=== PATIENT | female | born 1935 | race Caucasian/White ===

== ENCOUNTER 2018-04-04 11:54 | Emergency (ER) | payer OTHER ==
[2018-04-04] MEDS ORDERED: OXYCODONE/APAP 5/325 TAB PO ONE (11:58)
[2018-04-04] MEDS ORDERED: OXYMETAZOLINE 30 ML NASAL SPRAY EACHNARE ONE (11:58)
--- NOTE | 2018-04-04 12:02 | EDPHY ---
H & P Time Seen by Provider: 04/04/18 12:00 HPI/ROS: HPI: This 82-year-old female who presents with Chief Complaint: Tripping on a rocking hitting her face directly on the rock Location: Face Quality: Injury Duration: 1 hr prior to arrival Signs and Symptoms: No LOC, + bleeding, no radiation, no numbness, no weakness , no tingling, no incontinence, no decreased range of motion, no swelling, no pain, no fever Timing: Acute Severity: Moderate Context: Patient presents via EMS with complaints of nose injury and bleeding. Patient [place] and she accidentally tripped while she was walking and fell forward hitting her face primarily her nose on a rock. She reports that she did not lose consciousness. Her nose immediately started to bleed. She applied direct pressure with cessation of bleeding within approximately 5-10 minutes. She was ambulatory at the scene. EMS was called and cleared her C-spine via [facility] protocol. Patient takes baby aspirin daily. Denies LOC/head injury/neck pain/dizziness/nausea/vomiting/ amnesia. Patient reports that she used both hands to try to stop her fall and is complaining of bilateral thumb pain at the base without any decreased range of motion. There seems to be some bickering between the patient and her . Modifying Factors: Direct pressure Comment: ROS: see HPI Constitutional: No fever, no chills, no weight loss Eyes: No blurred vision Respiratory: No shortness of breath, no cough Cardiovascular: No chest pain Gastrointestinal: No nausea, no vomiting no diarrhea Genitourinary: No dysuria Extremities: No myalgias Neurologic: No weakness, no numbness Skin: No rashes Hematologic: No bruising, no bleeding MEDICAL/SURGICAL/SOCIAL HISTORY: Medical/Surgical history: htn, cardiac stentx2, Hypothyroidism, high chol, borderline dm, hysterectomy, heart murmur Social history: , retired. CONSTITUTIONAL: Extremely pleasant elderly white female, at bedside, awake and alert, no obvious distress HEENT: Atraumatic and normocephalic, PERRL, EOMI. no globe entrapment, no raccoon eyes. no Clemente signs.Tympanic membranes clear. No tympanic membrane rupture. Nares patent; dried blood in both nares; swollen and deformed nasal bridge that is tender to palpation. Vertical 4th inch superficial laceration right at the cupid's tip-not through and through. Oropharynx clear, no exudate and moist pink mucosa. No malocclusion. no dental trauma. Airway patent. No lymphadenopathy. NECK: supple, no midline tenderness, flexion 45 degrees, extension 45 degrees, right and left lateral flexion 45 degrees. No meningismus. Cardiovascular: Normal S1/S2, regular rate, regular rhythm, without murmur rub or gallop. PULMONARY/CHEST: Symmetrical and nontender. no crepitus. Clear to auscultation bilaterally. Good air movement. No accessory muscle usage. ABDOMEN: Soft, nondistended, nontender, no ecchymosis, no rebound, no guarding , no peritoneal signs, no masses or organomegaly. No CVAT. PELVIC: no pain with rocking; bilateral hips flexion 125 degrees, extension 30 degrees, with no pain internal rotation and no pain external rotation. BACK: No midline tenderness, no paraspinous spasm, deep tendon reflexes 2/2, no pain with straight leg raise EXTREMITIES: 2/2 pulses, no deformities, no clubbing, no cyanosis or edema. NEUROLOGICAL: no focal neuro deficits. GCS 15. SKIN: Warm and dry, no erythema. no rash. Good capillary refill. Source: Patient, Family, RN/MD, EMS Exam Limitations: No limitations - Medical/Surgical History Hx Asthma: No Hx Chronic Respiratory Disease: No Hx Diabetes: No Hx Cardiac Disease: Yes Hx Renal Disease: No Hx Cirrhosis: No Hx Alcoholism: No Hx HIV/AIDS: No Hx Splenectomy or Spleen Trauma: No Other PMH: htn ,cardiac stentx2, Hypothyroidism, high chol, boaderline dm, hysterectomy, heartmurmur - Social History Smoking Status: Former smoker Constitutional: Initial Vital Signs Temperature (C) 36.4 C 04/04/18 12:06 Heart Rate 65 04/04/18 12:06 Respiratory Rate 16 04/04/18 12:06 Blood Pressure 218/80 H 04/04/18 12:06 O2 Sat (%) 98 04/04/18 12:06 O2 Delivery Mode Room Air Allergies/Adverse Reactions: iodine [Iodine] Allergy (Verified 04/04/18 12:04) Home Medications: Medication Instructions Recorded Aspirin [Aspirin 81mg (*)] 162 mg PO DAILY 09/15/15 Carvedilol [Coreg (*)] 6.25 mg PO DAILY@0800 09/15/15 Carvedilol [Coreg (*)] 12.5 mg PO DAILY@1800 09/15/15 Levothyroxine [Synthroid 112 mcg 112 mcg PO DAILY06 09/15/15 (*)] Lisinopril [Zestril 40 mg (*)] 40 mg PO HS 09/15/15 amLODIPine BESYLATE [Norvasc 5 mg 5 mg PO HS 09/15/15 (*)] metFORMIN HCL [Glucophage 500 mg 1,000 mg PO BIDMEAL 09/15/15 (*)] Cefuroxime Axetil [Ceftin (*)] 250 mg PO BID #14 tab 04/04/18 oxyCODONE/APAP 5/325 [Percocet 1 - 2 tab PO Q4H PRN #10 tab 04/04/18 5/325 (*)] Medical Decision Making - Diagnostics Imaging Results: Imaging Impressions Cervical Spine CT 04/04/18 11:59 Impression: 1. Senescent features, with no acute intracranial abnormality. 2. Paranasal soft tissue swelling with further comminution of the nasal bridge fractures, and blood noted within the nasal cavity. 3. 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 Some concurrent left maxillary premolar dental caries is not excluded. UNENHANCED CT SCAN OF THE CERVICAL SPINE Technique: A multidetector unenhanced helical CT scan was obtained from the clivus caudally through the upper thoracic spine, with images reformatted at 1.50 mm increments, and are reviewed in soft tissue, bone, and lung windows. Parasagittal and paracoronal reconstructed images are reviewed on the workstation. The DFOV is 13.5 cm. A dose reduction protocol was used. Findings: The bones are demineralized, however there is no acute fracture or dislocation. As on the preceding study, there is advanced degenerative disk disease at C4-C5, C5-C6, and C6-C7 with disk space narrowing and ventral and dorsal traction osteophytes. Multilevel facet degenerative hypertrophy and uncovertebral degenerative spondylosis is noted, resulting in degrees of central and neural foraminal stenosis, similar to the previous exam. There is no facet malalignment. The interspinous distances are normal. The predental space is narrowed with osseous hypertrophy. The atlantoaxial lateral mass alignment is maintained. There is vascular atherosclerotic calcification. The lung apices are clear. Impression: Multilevel degenerative changes throughout the cervical spine, similar to the previous study of 2014, with no acute fracture observed. If there is further clinical concern regarding the patient's symptoms, correlative MR imaging could be considered, if otherwise not contraindicated. Findings were discussed with Janeen Steele PA-C at 12:59, on 04/04/2018. Head CT 04/04/18 11:59 Impression: 1. Senescent features, with no acute intracranial abnormality. 2. Paranasal soft tissue swelling with further comminution of the nasal bridge fractures, and blood noted within the nasal cavity. 3. 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 Some concurrent left maxillary premolar dental caries is not excluded. UNENHANCED CT SCAN OF THE CERVICAL SPINE Technique: A multidetector unenhanced helical CT scan was obtained from the clivus caudally through the upper thoracic spine, with images reformatted at 1.50 mm increments, and are reviewed in soft tissue, bone, and lung windows. Parasagittal and paracoronal reconstructed images are reviewed on the workstation. The DFOV is 13.5 cm. A dose reduction protocol was used. Findings: The bones are demineralized, however there is no acute fracture or dislocation. As on the preceding study, there is advanced degenerative disk disease at C4-C5, C5-C6, and C6-C7 with disk space narrowing and ventral and dorsal traction osteophytes. Multilevel facet degenerative hypertrophy and uncovertebral degenerative spondylosis is noted, resulting in degrees of central and neural foraminal stenosis, similar to the previous exam. There is no facet malalignment. The interspinous distances are normal. The predental space is narrowed with osseous hypertrophy. The atlantoaxial lateral mass alignment is maintained. There is vascular atherosclerotic calcification. The lung apices are clear. Impression: Multilevel degenerative changes throughout the cervical spine, similar to the previous study of 2014, with no acute fracture observed. If there is further clinical concern regarding the patient's symptoms, correlative MR imaging could be considered, if otherwise not contraindicated. Findings were discussed with Janeen Steele PA-C at 12:59, on 04/04/2018. Hand X-Ray 04/04/18 12:03 Impression: No acute osseous abnormality identified. Right Hand (4 Views): The bones are mildly demineralized. There is no acute fracture or dislocation. The joint spaces have a normal thickness (with the exception of the fifth DIP joint, which is mildly narrowed and associated with a small degenerative spur at the base of the distal phalanx). There are no marginal erosions or periosteal reaction. There is no radiopaque foreign body. Impression: No acute osseous abnormality identified. If there is a high clinical concern regarding an occult fracture, conservative management and short-term repeat radiographic follow-up in 7-14 days could be considered. Hand X-Ray 04/04/18 12:03 Impression: No acute osseous abnormality identified. Right Hand (4 Views): The bones are mildly demineralized. There is no acute fracture or dislocation. The joint spaces have a normal thickness (with the exception of the fifth DIP joint, which is mildly narrowed and associated with a small degenerative spur at the base of the distal phalanx). There are no marginal erosions or periosteal reaction. There is no radiopaque foreign body. Impression: No acute osseous abnormality identified. If there is a high clinical concern regarding an occult fracture, conservative management and short-term repeat radiographic follow-up in 7-14 days could be considered. ED Course/Re-evaluation: Based on [facility] Head/Cervical protocol; patient is older than 65 years of age and imaging will be ordered. Afrin spray applied to epistaxis. Tetanus booster and Percocet given Fall was accidental in nature. No signs of syncope/chest pain/shortness of breath/illness Had x-rays ordered bilaterally due to bilateral thumb pain. 1223: Notified by nurse that patient politely refused tetanus booster and Percocet 1305: By radiologist who advised that the CT head scan is negative for any acute intracranial process including no hemorrhage. It does show parents nasal soft tissue swelling and comminuted nasal bridge fracture that is similar to the nasal fracture that she sustained back in 2014. At that time she also had left maxillary sinus involvement and today the sinus on that area looks less dehisced and improved. There is blood in the nasal cavity. Cervical CT scan shows no acute fracture, disc herniation, there is moderate central canal stenosis and degenerative changes that are stable from her prior CT cervical scan in 2015. 1310: Reassessed patient who reports that she does not want me to suture her lip laceration as "she did not have to have it sutured in 2015 and was a similar presentation and she does not want it sutured now." Patient reports that she will follow up with ENT as recommended and agrees to take Keflex now and Rx Ceftin. Bilateral hand x-rays my read show no fracture. Repeat blood pressure is significantly improved. Patient is appropriate for discharge home. This patient was seen under the supervision of my secondary supervising physician. I evaluated care for this patient independently. Discussed this patient with Dr. Bella who did not see the patient. Differential Diagnosis: Head injury including but not limited to concussion, skull fracture, intraparenchymal contusion, subarachnoid, subdural and epidural hematoma. - Data Points Medications Given: Discontinued Medications Cephalexin HCl (Keflex) 500 mg PO EDNOW ONE PRN Reason: Protocol Stop: 04/04/18 13:03 Last Admin: 04/04/18 13:10 Dose: 500 mg Diphtheria/Tetanus/Acell Pertussis (Boostrix) 0.5 ml IM .ONCE ONE Stop: 04/04/18 12:06 Last Admin: 04/04/18 12:10 Dose: Not Given Oxycodone/Acetaminophen (Percocet 5/325) 1 tab PO EDNOW ONE Stop: 04/04/18 11:59 Last Admin: 04/04/18 12:22 Dose: Not Given Oxymetazoline HCl (Afrin Nasal [place]) 2 sprays EACHNARE EDNOW ONE Stop: 04/04/18 11:59 Last Admin: 04/04/18 12:22 Dose: Not Given Departure - Departure Disposition: Home, Routine, Self-Care Clinical Impression: Contusion of nose, initial encounter, Degenerative cervical spinal stenosis Nasal bones, closed fracture Qualifiers: Encounter type: initial encounter Qualified Code(s): S02.2XXA - Fracture of nasal bones, initial encounter for closed fracture Accidental fall Qualifiers: Encounter type: initial encounter Qualified Code(s): W19.XXXA - Unspecified fall, initial encounter Lip laceration Qualifiers: Encounter type: initial encounter Qualified Code(s): S01.511A - Laceration without foreign body of lip, initial encounter Condition: Good Instructions: Cefuroxime (By mouth), Oxycodone/Acetaminophen (By mouth), Nasal Fracture (ED), Concussion (ED), Facial Contusion (ED) Additional Instructions: Please avoid blowing your nose or digital manipulation until seen by ear nose and throat for follow-up. Follow-up with ear nose and throat in 3-5 days. Apply Vaseline to both of your nostrils to prevent dryness. Take Tylenol 650 mg every 4 hours and/or Ibuprofen 600 mg every 8 hours with food as needed for pain. Use Percocet every 6 hours as needed for severe/break through pain. Do not use Tylenol and Percocet concomitantly. Apply ice for 30 minutes at a time; 2-3 times per day for the next 1-2 days. Take Ceftin 2 times a day for the next 7 days. You did sustain a head injury and it is recommended that you observe concussion precautions as you are at risk. Follow-Up: Please follow-up as noted above. Follow-up sooner if your condition worsens or if you develop any new problems. Call as soon as possible for an appointment. Be clear when you call for an appointment that this is an Emergency Department follow-up. Contact the Emergency Department if you have trouble arranging follow-up care. Our referrals are not based on your insurance network. When time allows, contact your insurance carrier to verify the referral physician is in your plan. If not, get a referral for an in-target network analyst. Return to the ER immediately if you have progressive headaches, neurologic deficits, gait abnormality, visual disturbance, slurred speech, or any other symptom that concerns you. Referrals: Christ Chester MD [Medical Doctor] - As per Instructions Prescriptions: Cefuroxime Axetil [Ceftin (*)] 250 mg PO BID #14 tab oxyCODONE/APAP 5/325 [Percocet 5/325 (*)] 1 - 2 tab PO Q4H PRN #10 tab PRN Reason: Pain, Severe
[2018-04-04] MEDS ORDERED: TDAP ADULT 0.5 ML INJ (BOOSTRIX) IM ONE (12:05)
[2018-04-04 13:02] VITALS: BP 176/61
[2018-04-04] MEDS ORDERED: CEPHALEXIN 500 MG CAP PO ONE (13:02)
== END 2018-04-04 13:23 | disposition home or self-care (01) ==
LOC: EDUNIT#
DX: S02.2XXA Fracture of nasal bones, initial encounter for closed fracture (principal); S01.511A Laceration without foreign body of lip, initial encounter; M48.02 Spinal stenosis, cervical region; I10 Essential (primary) hypertension; Z95.5 Presence of coronary angioplasty implant and graft; Z87.891 Personal history of nicotine dependence; Z79.82 Long term (current) use of aspirin; Z79.84 Long term (current) use of oral hypoglycemic drugs; W01.198A Fall on same level from slipping, tripping and stumbling with subsequent striking against other object, initial encounter; Y99.8 Other external cause status; Y93.01 Activity, walking, marching and hiking